=== PATIENT | male | born 1935 | race Caucasian/White ===

== ENCOUNTER → 2016-03-03 | Day surgery (SDC) | payer MEDICARE, OTHER ==
[2016-02-28 09:38] LABS: Basophils # (auto) 0 uL; Basophils % (auto) 0.6 % (0.0-2.0); Eosinophils # (auto) 0.1 uL; Eosinophils % (auto) 1.8 % (0.0-7.0); Hematocrit 43.8 % (41.0-53.0); Hemoglobin 14.5 g/dL (13.5-17.5); Lymphocytes % (auto) 27.4 % (10.0-50.0); Mean Corpuscular Hemoglobin 30.4 pg (28.0-32.0); Mean Platelet Volume 7.8 fL (7.4-10.4); Monocytes # (auto) 0.5 uL; Monocytes % (auto) 6.5 % (0.0-12.0); Neutrophils # (auto) 4.7 uL; Neutrophils % (auto) 63.7 % (37.0-80.0); Platelet Count (auto) 258 10^3/uL (140-450); Red Cell Distribution Width 12.9 % (11.6-16.0); White Blood Cell 7.4 10^3/uL (4.4-10.8)
[2016-02-28 10:08] LABS: INR 1.04 (0.9-1.15); Partial Thromboplastin Time 25.9 sec (22.64-33.71); Prothrombin Time 10.7 sec (9.37-12.3)
[~2016-03-03] VITALS: Ht 175.3 cm; Wt 77.1 kg
[~2016-03-03] MED LIST: ASPI81TA27 PO; FLUMAZENIL 0.1 MG/ML INJ 10ML MDV IV ONE; METF-312 PO; METO25TA5 PO; MULT-236 OR; NALOXONE HCL 0.4 MG/ML VIAL ONE; NIFE60TA59 PO; OMEG100078 OR; PRAV20TA3 PO; SODIUM CHLORIDE LOCK 10 ML ONE; diphenhdrAMINE HCL 50 MG/1 ML VL ONE
[2016-03-03] MEDS: fentaNYL CITRATE 100 MCG/2 ML VL ONE ×2 (08:57→09:05)
[2016-03-03] MEDS: MIDAZOLAM HCL 5 MG/ML-1ML VIAL ONE ×2 (08:57→09:05)
[2016-03-03 09:51] VITALS: BP 136/68
== END | disposition home or self-care (01) ==
LOC: GI 07:31
PROVIDERS: ATTEND Internal Medicine Gastroenterology
DX: D12.2 Benign neoplasm of ascending colon (principal); K64.8 Other hemorrhoids; E11.9 Type 2 diabetes mellitus without complications; Z90.49 Acquired absence of other specified parts of digestive tract
CPT/HCPCS: 36415; 45380; 82962; 85025; 85049; 85610; 85730; J1200; J2250; J3010; J7030

== ENCOUNTER → 2016-06-12 | Outpatient (CLI) | payer MEDICARE, OTHER ==
[~2016-06-12] MED LIST changes: -FLUMAZENIL 0.1 MG/ML INJ 10ML MDV IV ONE; -NALOXONE HCL 0.4 MG/ML VIAL ONE; -SODIUM CHLORIDE LOCK 10 ML ONE; -diphenhdrAMINE HCL 50 MG/1 ML VL ONE
[2016-06-12 08:14] LABS: Basophils # (auto) 0 uL; Basophils % (auto) 0.5 % (0.0-2.0); Eosinophils # (auto) 0.2 uL; Eosinophils % (auto) 2.6 % (0.0-7.0); Hematocrit 43.6 % (41.0-53.0); Hemoglobin 14.6 g/dL (13.5-17.5); Lymphocytes # (auto) 2.3 uL; Lymphocytes % (auto) 35.8 % (10.0-50.0); Mean Corpuscular Hemoglobin 30.5 pg (28.0-32.0); Mean Corpuscular Hgb Conc. 33.6 g/dL (32.0-36.0); Mean Corpuscular Volume 90.7 fL (80.0-100.0); Monocytes # (auto) 0.4 uL; Monocytes % (auto) 5.8 % (0.0-12.0); Neutrophils # (auto) 3.6 uL; Neutrophils % (auto) 55.3 % (37.0-80.0); Platelet Count (auto) 232 10^3/uL (140-450); Red Cell Distribution Width 12.7 % (11.6-16.0); White Blood Cell 6.6 10^3/uL (4.4-10.8)
[2016-06-12 08:21] LABS: Albumin 3.7 g/dL (3.4-5.0); BUN/Creatinine Ratio 10.8; Bilirubin, Total 0.5 mg/dL (0.2-1.0); Calcium 8.8 mg/dL (8.5-10.1); Potassium 3.9 mmol/L (3.5-5.1); Total Protein 7.8 g/dL (6.4-8.2)
== END | disposition home or self-care (01) ==
LOC: LAB 07:16
PROVIDERS: ATTEND Internal Medicine Cardiovascular Disease
DX: I25.10 Atherosclerotic heart disease of native coronary artery without angina pectoris (principal)
CPT/HCPCS: 36415; 80053; 80061; 83036; 84443; 85025

== ENCOUNTER → 2016-06-17 | Outpatient (CLI) | payer MEDICARE, OTHER ==
[~2016-06-17] VITALS: Ht 175.3 cm; Wt 77.6 kg
[~2016-06-17] MED LIST changes: +ADENOSINE 65 MG in GIVE UN-DILUTED 0 ML IV STA
== END ==
LOC: XY 07:51
PROVIDERS: ATTEND Internal Medicine Cardiovascular Disease
DX: I25.10 Atherosclerotic heart disease of native coronary artery without angina pectoris (principal)
CPT/HCPCS: 78452; 93017; 93306; A9500; J0153

== ENCOUNTER → 2016-08-11 | Outpatient (CLI) | payer MEDICARE, OTHER ==
[~2016-08-11] MED LIST changes: -ADENOSINE 65 MG in GIVE UN-DILUTED 0 ML IV STA; -METF-312 PO; +METF-370 PO
[2016-08-11 07:51] LABS: Basophils # (auto) 0.1 uL; Basophils % (auto) 0.8 % (0.0-2.0); CONDITION Y; Eosinophils # (auto) 0.3 uL; Eosinophils % (auto) 4.6 % (0.0-7.0); Hematocrit 44.8 % (41.0-53.0); Hemoglobin 15.3 g/dL (13.5-17.5); Lymphocytes # (auto) 2.6 uL; Lymphocytes % (auto) 34.8 % (10.0-50.0); Mean Corpuscular Hemoglobin 31.1 pg (28.0-32.0); Mean Corpuscular Hgb Conc. 34.1 g/dL (32.0-36.0); Mean Corpuscular Volume 91.1 fL (80.0-100.0); Mean Platelet Volume 7.9 fL (7.4-10.4); Monocytes # (auto) 0.5 uL; Monocytes % (auto) 6.5 % (0.0-12.0); Neutrophils % (auto) 53.3 % (37.0-80.0); Platelet Count (auto) 223 10^3/uL (140-450); Red Cell Distribution Width 13.5 % (11.6-16.0); White Blood Cell 7.4 10^3/uL (4.4-10.8)
[2016-08-11 08:28] LABS: Albumin 3.9 g/dL (3.4-5.0); BUN/Creatinine Ratio 17.9; Bilirubin, Total 0.3 mg/dL (0.2-1.0); Calcium 9.2 mg/dL (8.5-10.1); Potassium 4.3 mmol/L (3.5-5.1); Total Protein 7.6 g/dL (6.4-8.2)
== END | disposition home or self-care (01) ==
LOC: LAB 06:58
PROVIDERS: ATTEND Internal Medicine
DX: E11.40 Type 2 diabetes mellitus with diabetic neuropathy, unspecified (principal); I10 Essential (primary) hypertension
CPT/HCPCS: 36415; 80053; 82607; 85025

== ENCOUNTER → 2016-09-29 | Outpatient (CLI) | payer MEDICARE, OTHER ==
[2016-09-29 07:09] LABS: Cholesterol 169 mg/dL (< 200); HDL Cholesterol 34 mg/dL (40-59); LDL Cholesterol 100 mg/dL (< 100); Triglycerides 266 mg/dL (< 150)
== END | disposition home or self-care (01) ==
LOC: LAB 06:28
PROVIDERS: ATTEND Internal Medicine
DX: E11.9 Type 2 diabetes mellitus without complications (principal); N40.0 Benign prostatic hyperplasia without lower urinary tract symptoms; E03.9 Hypothyroidism, unspecified
CPT/HCPCS: 36415; 80061; 83036; 84153; 84439; 84443

== ENCOUNTER → 2017-02-19 | Outpatient (CLI) | payer MEDICARE, OTHER | END | disposition home or self-care (01) | LOC: XY 12:45 | PROVIDERS: ATTEND Internal Medicine | DX: I73.9 Peripheral vascular disease, unspecified (principal); I10 Essential (primary) hypertension; E11.9 Type 2 diabetes mellitus without complications; E78.5 Hyperlipidemia, unspecified | CPT/HCPCS: 93923; 93926 ==

== ENCOUNTER 2017-03-09 08:57 | Inpatient (IN) | payer MEDICARE, OTHER ==
[~2017-03-09] VITALS: Ht 175.3 cm; Wt 77.1 kg
[2017-03-09] MEDS ORDERED: ASPirin 81 mg TAB PO ONE (09:15)
[2017-03-09] MEDS ORDERED: ASPirin 325 MG TAB PO ONE (09:30)
[2017-03-09] MEDS ORDERED: NITROGLYCERIN 0.4 MG SL TAB SL ONE (09:30)
[2017-03-09 09:50] LABS: Basophils # (auto) 0 uL; Basophils % (auto) 0.4 % (0.0-2.0); Eosinophils # (auto) 0.3 uL; Eosinophils % (auto) 3.3 % (0.0-7.0); Hematocrit 42.7 % (41.0-53.0); Hemoglobin 14.9 g/dL (13.5-17.5); Lymphocytes # (auto) 1.7 uL; Lymphocytes % (auto) 21.9 % (10.0-50.0); Mean Corpuscular Hemoglobin 31.8 pg (28.0-32.0); Mean Corpuscular Volume 90.8 fL (80.0-100.0); Monocytes # (auto) 0.6 uL; Monocytes % (auto) 8.4 % (0.0-12.0); Nucleated Red Blood Cells % 0.2 %; Platelet Count (auto) 174 10^3/uL (140-450); Red Cell Distribution Width 13.1 % (11.8-14.3); White Blood Cell 7.6 10^3/uL (4.4-10.8)
[2017-03-09 10:03] LABS: Albumin 3.5 g/dL (3.4-5.0); BUN/Creatinine Ratio 12.7; Bilirubin, Total 0.5 mg/dL (0.2-1.0); Calcium 9.1 mg/dL (8.5-10.1); Magnesium 2.6 mg/dL (1.6-2.6); Potassium 3.6 mmol/L (3.5-5.1); Total Protein 8.2 g/dL (6.4-8.2)
[2017-03-09] MEDS ORDERED: MORPHINE SULF INJ 2 MG/ML SYRINGE 1ML IV PRN ×2 (11:00)
[2017-03-09] MEDS ORDERED: NITROGLYCERIN 0.4MG/HR TOPICAL PATCH TD ONE (11:00)
[2017-03-09] MEDS ORDERED: HYDROcodone-ACET 5/325MG TAB PO PRN (11:00)
[2017-03-09] MEDS ORDERED: DEXTROSE (50%) 50ML SYRG IV PRN (11:00)
[2017-03-09] MEDS ORDERED: NITROGLYCERIN 0.4 MG SL TAB SL PRN (11:00)
[2017-03-09] MEDS ORDERED: ONDANSETRON HCL 4 MG/2 ML VIAL IV PRN (11:00)
[2017-03-09] MEDS ORDERED: ACETAMINOPHEN 500 MG TAB PO PRN (11:15)
[2017-03-09] MEDS: InsuLIN REG 1unit/0.01ml Soln (100units/ml) SC SCH ×3 (12:01→21:17)
[2017-03-09] MEDS: ACCU-CHEK COMFORT CURVE STRIP VI SCH ×3 (12:02→21:17)
[2017-03-09 12:58] LABS: Cholesterol 158 mg/dL (< 200); HDL Cholesterol 38 mg/dL (40-59); LDL Cholesterol 107 mg/dL (< 100); Triglycerides 169 mg/dL (< 150)
[2017-03-09 16:13] LABS: INR 0.97 (0.9-1.15); Prothrombin Time 10.6 sec (9.37-12.3)
[2017-03-09 20:00] VITALS: BP 162/86
[2017-03-09] MEDS: ATORVASTATIN 20 MG TAB PO SCH (21:15)
[2017-03-09] MEDS: DOCUSATE SOD 100 MG CAP PO SCH (21:16)
[2017-03-09] MEDS: METOPROLOL TARTRATE 25 MG TAB PO SCH (21:22)
[2017-03-09 22:00] VITALS: BP 162/86
[2017-03-09] MEDS ORDERED: ATORVASTATIN 20 MG TAB PO SCH (22:00)
[2017-03-10 04:39] LABS: Urine Bacteria FEW /hpf (None Seen); Urine Blood Negative /uL (Negative); Urine Mucus FEW (None Seen); Urine Specific Gravity 1.017 (1.001-1.035); Urine WBC 6 /hpf (0 - 3)
[2017-03-10 05:30] VITALS: BP 132/55
[2017-03-10] MEDS: InsuLIN REG 1unit/0.01ml Soln (100units/ml) SC SCH ×4 (06:36→22:21)
[2017-03-10] MEDS: ACCU-CHEK COMFORT CURVE STRIP VI SCH ×4 (06:36→22:24)
[2017-03-10 06:58] LABS: Basophils # (auto) 0 uL; Basophils % (auto) 0.5 % (0.0-2.0); Eosinophils # (auto) 0.4 uL; Eosinophils % (auto) 4.7 % (0.0-7.0); Hematocrit 38.8 % (41.0-53.0); Hemoglobin 13.6 g/dL (13.5-17.5); Lymphocytes # (auto) 1.9 uL; Lymphocytes % (auto) 24.5 % (10.0-50.0); Mean Corpuscular Hemoglobin 31.6 pg (28.0-32.0); Mean Corpuscular Volume 90.3 fL (80.0-100.0); Monocytes # (auto) 0.9 uL; Monocytes % (auto) 12.5 % (0.0-12.0); Neutrophils # (auto) 4.4 uL; Neutrophils % (auto) 57.8 % (37.0-80.0); Nucleated Red Blood Cells % 0.1 %; Platelet Count (auto) 191 10^3/uL (140-450); Red Cell Distribution Width 13.2 % (11.8-14.3); White Blood Cell 7.6 10^3/uL (4.4-10.8)
[2017-03-10 07:08] LABS: BUN/Creatinine Ratio 16.8; Calcium 8.7 mg/dL (8.5-10.1)
[2017-03-10 07:35] LABS: INR 0.98 (0.9-1.15); Partial Thromboplastin Time 28.8 sec (22.64-33.71); Prothrombin Time 10.7 sec (9.37-12.3)
[2017-03-10 08:00] VITALS: BP 146/71
[2017-03-10 08:59] VITALS: BP 146/71
[2017-03-10] MEDS: ASPirin-EC 81 mg tab PO SCH (09:37)
[2017-03-10] MEDS: METOPROLOL TARTRATE 25 MG TAB PO SCH ×2 (09:37→22:23)
[2017-03-10] MEDS: DOCUSATE SOD 100 MG CAP PO SCH ×2 (09:37→22:24)
[2017-03-10] MEDS ORDERED: NITROGLYCERIN 0.4MG/HR TOPICAL PATCH TD SCH (10:00)
[2017-03-10 15:10] VITALS: BP 145/73
[2017-03-10 17:50] VITALS: BP 143/80
[2017-03-10 22:00] VITALS: BP 151/74
[2017-03-10] MEDS: ATORVASTATIN 20 MG TAB PO SCH (22:24)
[2017-03-11 05:59] VITALS: BP 129/71
[2017-03-11] MEDS: ACCU-CHEK COMFORT CURVE STRIP VI SCH ×4 (06:03→21:37)
[2017-03-11] MEDS: InsuLIN REG 1unit/0.01ml Soln (100units/ml) SC SCH ×4 (06:03→21:37)
[2017-03-11] MEDS ORDERED: IODIXANOL 320MG/ML 100ML BTL IV ONE (07:29)
[2017-03-11] MEDS ORDERED: LIDOCAINE 2%HCL (LOCAL ANESTH.) INJ 20ML MDV ONE (07:29)
[2017-03-11 08:00] VITALS: BP 157/86
[2017-03-11 09:00] VITALS: BP 127/86
[2017-03-11] MEDS ORDERED: MIDAZOLAM HCL 1MG/1ML-2 ML VIAL ONE (09:13)
[2017-03-11] MEDS ORDERED: fentaNYL CITRATE 100 MCG/2 ML VL ONE (09:13)
[2017-03-11] MEDS ORDERED: VERAPAMIL 2.5MG/ML INJ 2ML VIAL IV ONE ×2 (09:13→09:50)
[2017-03-11] MEDS ORDERED: ANGIOMAX 250 MG VIAL IV ONE (09:18)
[2017-03-11] MEDS: METOPROLOL TARTRATE 25 MG TAB PO SCH ×2 (10:00→21:36)
[2017-03-11] MEDS ORDERED: CLOPIDOGREL 300 MG TAB ONE (10:18)
[2017-03-11] MEDS ORDERED: ASPirin 81 mg TAB ONE (10:56)
[2017-03-11] MEDS: ASPirin-EC 81 mg tab PO SCH (11:01)
[2017-03-11] MEDS ORDERED: SODIUM CHLORIDE 0.9% 1,000 ML IV SCH (11:14)
[2017-03-11] MEDS ORDERED: METOPROLOL TARTRATE 25 MG TAB PO ONE (11:15)
[2017-03-11] MEDS ORDERED: ISOSORBIDE MONONITRATE 60 MG TAB PO ONE (12:30)
[2017-03-11 17:00] VITALS: BP 150/72
[2017-03-11] MEDS: DOCUSATE SOD 100 MG CAP PO SCH ×2 (17:01→21:35)
[2017-03-11 18:33] VITALS: BP 145/85
[2017-03-11] MEDS ORDERED: diphenhdrAMINE HCL 25 MG CAP PO ONE (20:15)
[2017-03-11] MEDS: ATORVASTATIN 20 MG TAB PO SCH (21:35)
[2017-03-12 05:14] VITALS: BP 128/67
[2017-03-12] MEDS: InsuLIN REG 1unit/0.01ml Soln (100units/ml) SC SCH (06:31)
[2017-03-12] MEDS: ACCU-CHEK COMFORT CURVE STRIP VI SCH (06:32)
[2017-03-12 09:00] VITALS: BP 147/76
[2017-03-12] MEDS ORDERED: CLOPIDOGREL BISULFATE 75 MG TAB PO SCH (10:00)
[2017-03-12] MEDS ORDERED: ISOSORBIDE MONONITRATE 60 MG TAB PO SCH (10:00)
[2017-03-12] MEDS: DOCUSATE SOD 100 MG CAP PO SCH (11:34)
[2017-03-12] MEDS: METOPROLOL TARTRATE 25 MG TAB PO SCH (11:35)
[2017-03-12] MEDS: ASPirin-EC 81 mg tab PO SCH (11:35)
[2017-03-12 12:04] VITALS: BP 147/76
== END 2017-03-12 13:55 | disposition home or self-care (01) | DRG 247 ==
LOC: ER 08:57 → TELE 08:58 → TELE-WESTW 12:49 → TELE-CENTR 16:50
PROVIDERS: ADMIT Internal Medicine; ATTEND Internal Medicine
PROC: 027035Z Dilation of Coronary Artery, One Artery with Two Drug-eluting Intraluminal Devices, Percutaneous Approach (ICD-10-PCS; principal; 2017-03-11)
PROC: 4A023N7 Measurement of Cardiac Sampling and Pressure, Left Heart, Percutaneous Approach (ICD-10-PCS; 2017-03-11)
PROC: B2111ZZ Fluoroscopy of Multiple Coronary Arteries using Low Osmolar Contrast (ICD-10-PCS; 2017-03-11)
DX: I25.110 Atherosclerotic heart disease of native coronary artery with unstable angina pectoris (principal); E11.22 Type 2 diabetes mellitus with diabetic chronic kidney disease; E11.65 Type 2 diabetes mellitus with hyperglycemia; I24.9 Acute ischemic heart disease, unspecified; N18.3 Chronic kidney disease, stage 3 (moderate); I12.9 Hypertensive chronic kidney disease with stage 1 through stage 4 chronic kidney disease, or unspecified chronic kidney disease; E78.5 Hyperlipidemia, unspecified; I49.3 Ventricular premature depolarization; I70.0 Atherosclerosis of aorta; K59.00 Constipation, unspecified; Z79.02 Long term (current) use of antithrombotics/antiplatelets; Z79.82 Long term (current) use of aspirin; Z86.010 Personal history of colon polyps; Z95.5 Presence of coronary angioplasty implant and graft; Z88.1 Allergy status to other antibiotic agents; Z79.899 Other long term (current) drug therapy; Z90.49 Acquired absence of other specified parts of digestive tract
CPT/HCPCS: 36415; 71046; 80048; 80053; 80061; 81001; 82962; 83036; 83735; 83880; 84443; 84484; 85025; 85379; 85610; 85730; 86141; 86850; 86900; 86901; 92928; 93005; 93306; 93458; 99152; C1874; J1815; J2250; Q9967

== ENCOUNTER → 2017-05-27 | Outpatient (CLI) | payer MEDICARE, OTHER ==
[2017-05-27 08:41] LABS: Cholesterol 112 mg/dL (< 200); HDL Cholesterol 32 mg/dL (40-59); LDL Cholesterol 65 mg/dL (< 100); Triglycerides 196 mg/dL (< 150)
== END | disposition home or self-care (01) ==
LOC: LAB 07:02
PROVIDERS: ATTEND Family Medicine
DX: E11.22 Type 2 diabetes mellitus with diabetic chronic kidney disease (principal); I12.9 Hypertensive chronic kidney disease with stage 1 through stage 4 chronic kidney disease, or unspecified chronic kidney disease; N18.3 Chronic kidney disease, stage 3 (moderate); E78.5 Hyperlipidemia, unspecified; Z79.899 Other long term (current) drug therapy; Z79.82 Long term (current) use of aspirin
CPT/HCPCS: 36415; 80061; 83036

== ENCOUNTER → 2017-10-20 | Outpatient (CLI) | payer MEDICARE, OTHER ==
[2017-10-20 07:49] LABS: Urine Bacteria NONE SEEN /hpf (None Seen); Urine Blood Negative /uL (Negative); Urine Specific Gravity 1.014 (1.001-1.035); Urine WBC 1 /hpf (0 - 3)
[2017-10-20 07:58] LABS: Basophils # (auto) 0 uL; Basophils % (auto) 0.7 % (0.0-2.0); Eosinophils # (auto) 0.1 uL; Eosinophils % (auto) 2.3 % (0.0-7.0); Hematocrit 43.4 % (41.0-53.0); Hemoglobin 14.7 g/dL (13.5-17.5); Lymphocytes # (auto) 1.9 uL; Lymphocytes % (auto) 32.6 % (10.0-50.0); Mean Corpuscular Hemoglobin 31.9 pg (28.0-32.0); Mean Corpuscular Volume 93.9 fL (80.0-100.0); Monocytes # (auto) 0.3 uL; Monocytes % (auto) 5.8 % (0.0-12.0); Neutrophils # (auto) 3.4 uL; Neutrophils % (auto) 58.6 % (37.0-80.0); Platelet Count (auto) 200 10^3/uL (140-450); Red Blood Cells 4.62 10^6/uL (4.5-5.90); Red Cell Distribution Width 13.1 % (11.8-14.3); White Blood Cell 5.8 10^3/uL (4.4-10.8)
[2017-10-20 08:31] LABS: Albumin 3.8 g/dL (3.4-5.0); BUN/Creatinine Ratio 13.6; Bilirubin, Total 0.4 mg/dL (0.2-1.0); Potassium 4.1 mmol/L (3.5-5.1); Total Protein 7.7 g/dL (6.4-8.2)
== END | disposition home or self-care (01) ==
LOC: LAB 07:15
PROVIDERS: ATTEND Family Medicine
DX: E11.9 Type 2 diabetes mellitus without complications (principal); I10 Essential (primary) hypertension
CPT/HCPCS: 36415; 80053; 80061; 81001; 82043; 83036; 85025

== ENCOUNTER → 2018-05-04 | Outpatient (CLI) | payer MEDICARE, OTHER ==
[2018-05-04 07:35] LABS: Urine WBC None Seen /hpf (0 - 3)
[2018-05-04 08:01] LABS: Basophils # (auto) 0 uL; Basophils % (auto) 0.5 % (0.0-2.0); Eosinophils # (auto) 0.2 uL; Eosinophils % (auto) 2.5 % (0.0-7.0); Hematocrit 45.3 % (41.0-53.0); Hemoglobin 15.4 g/dL (13.5-17.5); Lymphocytes # (auto) 2.3 uL; Lymphocytes % (auto) 35.1 % (10.0-50.0); Monocytes # (auto) 0.4 uL; Monocytes % (auto) 5.5 % (0.0-12.0); Neutrophils # (auto) 3.7 uL; Neutrophils % (auto) 56.4 % (37.0-80.0); Nucleated Red Blood Cells % 0.1 %; Platelet Count (auto) 197 10^3/uL (140-450); Red Blood Cells 4.82 10^6/uL (4.5-5.90); Red Cell Distribution Width 12.7 % (11.8-14.3); White Blood Cell 6.6 10^3/uL (4.4-10.8)
[2018-05-04 08:12] LABS: Albumin 3.9 g/dL (3.4-5.0); BUN/Creatinine Ratio 12.7; Potassium 4.7 mmol/L (3.5-5.1)
[2018-05-04 08:17] LABS: Bilirubin, Total 0.5 mg/dL (0.2-1.0); Total Protein 7.9 g/dL (6.4-8.2)
[2018-05-04 08:21] LABS: Urine Bacteria NONE SEEN /hpf (None Seen); Urine Blood Negative /uL (Negative); Urine Specific Gravity 1.016 (1.001-1.035)
== END | disposition home or self-care (01) ==
LOC: LAB 07:22
PROVIDERS: ATTEND Nurse Practitioner
DX: E78.5 Hyperlipidemia, unspecified (principal); E11.9 Type 2 diabetes mellitus without complications
CPT/HCPCS: 36415; 80053; 80061; 81001; 82043; 83036; 84443; 85025

== ENCOUNTER → 2018-09-06 | Outpatient (CLI) | payer MEDICARE, OTHER ==
[~2018-09-06] MED LIST changes: +ASPI-404 PO; -ASPI81TA27 PO
[2018-09-06 07:48] LABS: Basophils # (auto) 0.1 uL; Eosinophils # (auto) 0.2 uL; Eosinophils % (auto) 2.3 % (0.0-7.0); Hematocrit 43.1 % (41.0-53.0); Lymphocytes # (auto) 2.5 uL; Lymphocytes % (auto) 35.7 % (10.0-50.0); Mean Corpuscular Hemoglobin 32.2 pg (28.0-32.0); Mean Corpuscular Hgb Conc. 34.7 g/dL (32.0-36.0); Mean Corpuscular Volume 92.9 fL (80.0-100.0); Monocytes # (auto) 0.4 uL; Monocytes % (auto) 6.3 % (0.0-12.0); Neutrophils # (auto) 3.8 uL; Neutrophils % (auto) 54.7 % (37.0-80.0); Nucleated Red Blood Cells % 0.2 %; Platelet Count (auto) 206 10^3/uL (140-450); Red Blood Cells 4.64 10^6/uL (4.5-5.90); Red Cell Distribution Width 13.1 % (11.8-14.3); White Blood Cell 6.9 10^3/uL (4.4-10.8)
[2018-09-06 08:07] LABS: Albumin 3.8 g/dL (3.4-5.0); Calcium 9.1 mg/dL (8.5-10.1); Potassium 4.7 mmol/L (3.5-5.1)
[2018-09-06 08:13] LABS: BUN/Creatinine Ratio 11.4; Bilirubin, Total 0.5 mg/dL (0.2-1.0); Total Protein 7.7 g/dL (6.4-8.2)
== END | disposition home or self-care (01) ==
LOC: LAB 07:16
PROVIDERS: ATTEND Nurse Practitioner
DX: E78.5 Hyperlipidemia, unspecified (principal); E11.9 Type 2 diabetes mellitus without complications
CPT/HCPCS: 36415; 80053; 80061; 83036; 85025